=== PATIENT | female | born 1955 | race American Indian/Alaskan Native ===

== ENCOUNTER 2020-07-08 06:01 | Emergency (ER) | payer SELFPAY ==
[2020-07-08] MEDS ORDERED: TETRACAINE 0.5% OPHTH SOLN 4ML OU ONE (06:11)
[2020-07-08] MEDS ORDERED: TETRACAINE 0.5% OPHTH SOLN 4ML ONE (06:12)
[2020-07-08] MEDS ORDERED: MANNITOL 20% 500 ML IV ONE (06:42)
[2020-07-08] MEDS ORDERED: TIMOLOL 0.5% OPHTH SOLN 5 ML OU ONE (06:42)
[2020-07-08] MEDS ORDERED: MORPHINE 4 MG/1 ML INJ IV ONE ×2 (06:46→07:46)
[2020-07-08] MEDS ORDERED: BRIMONIDINE 0.15% OPHTH SOLN OU SCH (07:00)
--- NOTE | 2020-07-08 07:34 | Emergency Department Report ---
ED Eye Problem HPI - General Chief complaint: Neuro Symptoms/Deficit Stated complaint: POSSIBLE STROKE Time Seen by Provider: 07/08/20 06:11 Source: EMS Mode of arrival: Stretcher Limitations: No Limitations - History of Present Illness Initial comments: Patient is a 64-year-old F Chinese female who states that at approximately 5 PM yesterday she started having some pain in the right with vision loss. Started out as blurry vision but is progressed to not being able to see except for shadows. Patient states pain is 6 out of 10 in severity. She has a right-sided headache as well. 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 History of hypertension. Patient denies cough cold congestion fevers chills or head injury. - Related Data Allergies Allergy/AdvReac Type Severity Reaction Status Date / Time No Known Allergies Allergy Verified 07/08/20 06:16 ED Review of Systems ROS: Stated complaint: POSSIBLE STROKE Other details as noted in HPI Comment: All other systems reviewed and negative ED Past Medical Hx - Past Medical History Previous Medical History?: Yes Hx Hypertension: Yes - Surgical History Past Surgical History?: Yes - Social History Smoking Status: Never Smoker Substance Use Type: None ED Physical Exam - General Limitations: No Limitations General appearance: alert, in no apparent distress - Head Head exam: Present: atraumatic, normocephalic - Eye Eye exam: Present: normal appearance, PERRL (left), EOMI (left) - Expanded Eye Exam Expanded Eyelids: Normal Inspection: Right, Swelling: Right (scleral edema and erythema) Sclera/Conjunctival: Injection: Right IOP (R) in mmH IOP measured with: Tonopen - ENT ENT exam: Present: mucous membranes moist - Neck Neck exam: Present: normal inspection - Respiratory Respiratory exam: Present: normal lung sounds bilaterally. Absent: respiratory distress, wheezes, rales, rhonchi - Cardiovascular Cardiovascular Exam: Present: regular rate, normal rhythm. Absent: systolic murmur, diastolic murmur, rubs, gallop - GI/Abdominal GI/Abdominal exam: Present: soft, normal bowel sounds. Absent: distended, tenderness, guarding, rebound - Extremities Exam Extremities exam: Present: normal inspection - Back Exam Back exam: Present: normal inspection - Neurological Exam Neurological exam: Present: alert, oriented X3 - Psychiatric Psychiatric exam: Present: normal affect, normal mood - Skin Skin exam: Present: warm, dry, intact, normal color. Absent: rash ED Course Vital Signs 07/08/20 07/08/20 06:11 08:01 Temperature 98.2 F Pulse Rate 115 H Respiratory 40 H Rate Blood Pressure 154/76 Blood Pressure 172/88 [right arm] ED Medical Decision Making - Lab Data Result diagrams: 07/08/20 06:51 Lab Results 07/08/20 Range/Units 06:51 WBC 7.0 (4.5-11.0) K/mm3 RBC 2.97 L (3.65-5.03) M/mm3 Hgb 9.2 L (10.1-14.3) gm/dl Hct 27.5 L (30.3-42.9) % MCV 93 (79-97) fl MCH 31 (28-32) pg MCHC 34 (30-34) % RDW 17.3 H (13.2-15.2) % Plt Count 217 (140-440) K/mm3 Lymph % (Auto) 9.0 L (13.4-35.0) % [place] % (Auto) 5.8 (0.0-7.3) % Eos % (Auto) 0.1 (0.0-4.3) % Baso % (Auto) 0.2 (0.0-1.8) % Lymph # (Auto) 0.6 L (1.2-5.4) K/mm3 [place] # (Auto) 0.4 (0.0-0.8) K/mm3 Eos # (Auto) 0.0 (0.0-0.4) K/mm3 Baso # (Auto) 0.0 (0.0-0.1) K/mm3 Seg Neutrophils % 84.9 H (40.0-70.0) % Seg Neutrophils # 6.0 (1.8-7.7) K/mm3 - Medical Decision Making Patient was given medications to decrease pressure in her right. She is still having significant pain and was given additional dose of morphine. Initially tried to transfer the patient to [facility] however they did not have laser capability. Patient accepted by Dr. Linares at [facility]. Patient will be transferred to the emergency department. Critical Care Time: Yes (30) Critical care attestation.: If time is entered above; I have spent that time in minutes in the direct care of this critically ill patient, excluding procedure time. ED Disposition Clinical Impression: Acute angle-closure glaucoma of right eye Disposition: [id number]/TX-[id number] ANOTHER TYPE HLTHCARE Is pt being admited?: No Does the pt Need Aspirin: No Condition: Stable Time of Disposition: 08:23
[2020-07-08 07:46] LABS: Basophils % (Auto) 0.2 % (0.0-1.8); Eosinophils % (Auto) 0.1 % (0.0-4.3); Hematocrit 27.5 % (30.3-42.9); Hemoglobin 9.2 gm/dl (10.1-14.3); Lymphocytes # (Auto) 0.6 K/mm3 (1.2-5.4); Mean Corpuscular HGB Conc 34 % (30-34); Mean Corpuscular Volume 93 fl (79-97); Monocytes # (Auto) 0.4 K/mm3 (0.0-0.8); Monocytes % (Auto) 5.8 % (0.0-7.3); Platelet Count 217 K/mm3 (140-440); Red Blood Count 2.97 M/mm3 (3.65-5.03); Red Cell Distribution Width 17.3 % (13.2-15.2)
[2020-07-08] MEDS ORDERED: WATER FOR INJ Sterile (PF) 10 ML IV ONE (08:00)
[2020-07-08 08:29] LABS: BUN/Creatinine Ratio 6; Blood Urea Nitrogen 7 mg/dL (7-17); Calcium 9.8 mg/dL (8.4-10.2); Hemolysis Index 41
[2020-07-08 09:00] VITALS: BP 153/84
== END 2020-07-08 09:45 | disposition other institution (70) ==
LOC: ED 06:01
DX: H40.211 Acute angle-closure glaucoma, right eye (principal); I10 Essential (primary) hypertension
CPT/HCPCS: 36415; 80048; 85025; 96374; 96375; 96376; 99285; J1120; J2150; J2270